=== PATIENT | male | born 1955 | race Caucasian/White ===

== ENCOUNTER 2017-02-19 21:58 | Inpatient (IN) | payer OTHER ==
[~2017-02-19] VITALS: Ht 165.1 cm; Wt 128.0 kg
[~2017-02-19 21:58] MED LIST: ADVAIR 500-501 EACH IH; ADVAIR 500/501 DISK IH; ANUSOL-HC21 GM PR; ASPIR-LOW81 M1 PO; ASPIRIN81 M2 PO; ATORVASTATIN CA20 MG PO; BACTRIM,SEPT1 TABLET PO; BENICAR HCT 401 EAC1; BENICAR HCT 401 EAC1 PO; BENICAR20 MG PO; COLACE100 MG PO; FLEXERIL10 MG PO; FLONASE16 G1 BOTH NARES; GLUCOPHAGE1000 MG PO; GLUCOPHAGE500 MG PO; HUMULIN R500 UNITS/ SC; HYZAAR 100-21 TABLET PO; INDOCIN25 MG PO; JANUVIA100 MG; JANUVIA100 MG PO; LANTUS 3 M100 UNITS/ SQ; LANTUS 3 M100 UNITS1; LANTUS 3 M100 UNITS1 SC; LIPITOR20 MG PO; LIPITOR40 MG; LIPITOR40 MG PO; LOSARTAN-HCTZ1 EAC1 PO; MOTRIN600 MG PO; NEXIUM40 MG; NEXIUM40 MG PO; NIACIN1000 MG PO; NIASPAN500 MG PO; NORCO 7.5/321 TABLET PO; NOVOLOG 10100 UNITS/ SQ; NOVOLOG PE100 UNITS/; NOVOLOG PE100 UNITS/ SC; OXYCODONE-APAP1 EAC6 PO; PERCOCET 5/31 TABLET PO; PROAIR HFA8.5 GM IH; PROTONIX40 MG PO; SINGULAIR10 MG; SINGULAIR10 MG PO; SKELAXIN800 MG PO; TENEX1 MG PO; TOPROL XL25 MG PO; TORADOL10 MG PO; TRICOR48 MG; TRICOR48 MG PO; Toprol XL PO; ZANTAC300 MG PO
[2017-02-19 22:34] LABS: HEMATOCRIT 41.8 % (38.0-50.0); MCH 31.1 PG (29.0-34.0); MCHC 33.7 G/DL (30.0-36.0); MCV 92.1 FL (86-99); MEAN PLAT.VOLUME 11.5 uM^3 (9.0-12.4); RBC DIS.WIDTH-CV 14.1 % (11.8-14.6); RBC DIS.WIDTH-SD 47.2 % (39-53); RED BLOOD COUNT 4.54 M/uL (4.00-5.50); WHITE BLOOD COUNT 8.7 K/uL (4.1-10.2)
[2017-02-19 22:37] LABS: PLATELET COUNT 187 K/uL (156-360)
[2017-02-19 22:47] LABS: CHLORIDE 109 mEq/L (99-109); POTASSIUM 3.6 mEq/L (3.7-5.4); SODIUM 142 mEq/L (136-147)
[2017-02-19 22:48] LABS: GLUCOSE 97 mg/dL (70-99)
[2017-02-19 22:50] LABS: ANION GAP 10 MEQ/L (2-14)
[2017-02-19 22:52] LABS: GFR ESTIMATE (CALCULATED) > 59 mL/min/
[2017-02-19 22:53] LABS: UREA NITROGEN (BUN) 17 mg/dL (9-23)
[2017-02-19 23:08] LABS: TROP-I INTERPRETATION NEGATIVE; TROPONIN-I 0.09 ng/mL (0.0-0.30)
[2017-02-20 00:15] LABS: PROTHROMBIN TIME 10.6 (9.2-11.2); PTT 26.4 (25-32)
[2017-02-20] MEDS ORDERED: INSULIN SYRING MC (01:09)
[2017-02-20] MEDS ORDERED: HUMULIN R500 UNITS/ SC ×3 (01:10→01:14)
[2017-02-20 01:20] LABS: D-DIMER ELISA 0.55 mg/L FEU (< 0.57)
[2017-02-20] MEDS ORDERED: SPIRIVA RESPIMAT4 GM IH (01:26)
[2017-02-20] MEDS ORDERED: MONTELUKAST SOD10 MG PO (01:26)
[2017-02-20] MEDS ORDERED: FOLIC ACID1 MG PO (01:27)
[2017-02-20] MEDS ORDERED: ROPINIROLE HC0.25 MG PO (01:27)
[2017-02-20] MEDS ORDERED: MELOXICAM7.5 MG PO (01:27)
[2017-02-20] MEDS ORDERED: MODAFINIL200 MG PO (01:27)
[2017-02-20] MEDS ORDERED: AMLODIPINE BESYL5 MG PO (01:58)
[2017-02-20] MEDS ORDERED: ASPIRIN81 M2 PO (01:58)
[2017-02-20 02:28] LABS: TOTAL BILIRUBIN 0.4 mg/dL (0.0-1.0)
[2017-02-20 02:29] LABS: ALKALINE PHOSPHATASE 71 IU/L (3-129)
[2017-02-20 02:32] LABS: DIRECT BILIRUBIN 0.1 mg/dL (0.0-0.3)
[2017-02-20 05:18] LABS: CHLORIDE 109 mEq/L (99-109); POTASSIUM 3.8 mEq/L (3.7-5.4); SODIUM 141 mEq/L (136-147)
[2017-02-20 05:19] LABS: MAGNESIUM 1.6 mg/dL (1.3-2.7)
[2017-02-20 05:20] LABS: GLUCOSE 101 mg/dL (70-99)
[2017-02-20 05:22] LABS: ANION GAP 10 MEQ/L (2-14)
[2017-02-20 05:24] LABS: ALKALINE PHOSPHATASE 61 IU/L (3-129); GFR ESTIMATE (CALCULATED) > 59 mL/min/; TROP-I INTERPRETATION NEGATIVE; TROPONIN-I 0.09 ng/mL (0.0-0.30)
[2017-02-20 05:25] LABS: UREA NITROGEN (BUN) 17 mg/dL (9-23)
[2017-02-20 05:32] LABS: TOTAL BILIRUBIN 0.6 mg/dL (0.0-1.0)
[2017-02-20 05:55] LABS: HDL CHOLESTEROL 23 MG/DL (Desirable>=40); NON-HDL CHOLESTEROL 228 mg/dL (Desirable<160); TOTAL CHOLESTEROL 251 mg/dL (Desirable<200); TRIGLYCERIDES 427 MG/DL (Normal: <150)
[2017-02-20 09:24] LABS: POINT-OF-CARE METER ID UU14100415
[2017-02-20 10:30] VITALS: BP 141/74
[2017-02-20 11:34] LABS: POINT-OF-CARE METER ID UU13113781
[2017-02-20 11:35] LABS: TROP-I INTERPRETATION NEGATIVE; TROPONIN-I 0.21 ng/mL (0.0-0.30)
[2017-02-20 14:04] LABS: ADD MIUA? YES; BILIRUBIN NEGATIVE; BLOOD SMALL; COLOR STRAW ((YELLOW)); GLUCOSE (STRIP) NEGATIVE; KETONES NEGATIVE; LEUKOCYTES NEGATIVE; NITRITE NEGATIVE; PROTEIN (STRIP) 100; SPECIFIC GRAVITY 1.013 (1.000-1.030); UROBILINOGEN 0.2 MG/DL (0.2-1.0)
[2017-02-20 14:09] LABS: BACTERIA NONE SEEN /HPF; EPITHELIAL CELLS RARE /HPF; MUCUS TRACE /LPF; RED BLOOD CELLS 0-5 /HPF (0-5); UCUL ADDED? NO; WHITE BLOOD CELLS 0-5 /HPF (0-5)
[2017-02-20 15:36] VITALS: BP 123/58
[2017-02-20 19:52] LABS: POINT-OF-CARE METER ID UU14174216
[2017-02-20 20:22] VITALS: BP 136/65
[2017-02-21 00:22] VITALS: BP 102/59
[2017-02-21 05:22] VITALS: BP 98/55
[2017-02-21 06:48] LABS: EOSINOPHIL (%) 1.6 % (0-5); EOSINOPHIL COUNT 0.1 K/uL (0-0.3); HEMATOCRIT 40.5 % (38.0-50.0); IMMATURE GRANULOCYTE (%) 0.8 % (0.0-0.7); IMMATURE GRANULOCYTE COUNT 0.1 K/uL; INSTRUMENT ABS NEUTROPHIL CT 5.5 K/uL; LYMPHOCYTE COUNT 2.1 K/uL (1.0-2.8); MCH 30.3 PG (29.0-34.0); MCHC 33.1 G/DL (30.0-36.0); MCV 91.6 FL (86-99); MEAN PLAT.VOLUME 11.7 uM^3 (9.0-12.4); NEUTROPHIL (%) 62.9 % (45-76); NEUTROPHIL COUNT 5.5 K/uL (1.8-6.4); PLATELET COUNT 175 K/uL (156-360); RBC DIS.WIDTH-CV 14.4 % (11.8-14.6); RBC DIS.WIDTH-SD 47.9 % (39-53); RED BLOOD COUNT 4.42 M/uL (4.00-5.50); WHITE BLOOD COUNT 8.8 K/uL (4.1-10.2)
[2017-02-21 07:16] LABS: ALKALINE PHOSPHATASE 51 IU/L (3-129); ANION GAP 11 MEQ/L (2-14); CHLORIDE 104 MEQ/L (99-109); GFR ESTIMATE (CALCULATED) 51 mL/min/; GLUCOSE 72 mg/dL (70-99); POTASSIUM 3.3 MEQ/L (3.7-5.4); SAMPLE HEMOLYSIS CHECK 0; SAMPLE ICTERIC CHECK 0; SAMPLE LIPEMIA CHECK 0; SODIUM 142 MEQ/L (136-147); TOTAL BILIRUBIN 0.8 MG/DL (0.0-1.0); UREA NITROGEN (BUN) 21 mg/dL (9-23)
[2017-02-21 07:41] VITALS: BP 114/59
[2017-02-21 07:47] VITALS: BP 117/56
[2017-02-21 08:06] LABS: POINT-OF-CARE METER ID UU14174216; POINT-OF-CARE USER ID NUTSLF44
[2017-02-21 14:10] VITALS: BP 134/68
[2017-02-21 16:53] LABS: POINT-OF-CARE METER ID UU14174216; POINT-OF-CARE USER ID NUTSLF44
[2017-02-21 20:15] VITALS: BP 130/77
[2017-02-21 20:51] LABS: POINT-OF-CARE METER ID UU14174216
[2017-02-22 00:25] VITALS: BP 108/56
[2017-02-22 04:41] VITALS: BP 117/68
[2017-02-22 07:49] LABS: POINT-OF-CARE METER ID UU14174216
[2017-02-22 09:29] VITALS: BP 125/64
[2017-02-22 11:44] LABS: POINT-OF-CARE METER ID UU14174216
[2017-02-22 12:16] VITALS: BP 126/76
[2017-02-22 16:32] LABS: POINT-OF-CARE METER ID UU14174216
[2017-02-22 16:52] VITALS: BP 128/63
[2017-02-22 19:20] VITALS: BP 127/63
[2017-02-23 00:39] VITALS: BP 129/67
[2017-02-23 05:27] VITALS: BP 132/72
[2017-02-23 07:41] LABS: POINT-OF-CARE METER ID UU14174216
[2017-02-23 08:24] VITALS: BP 141/67
[2017-02-23 11:06] VITALS: BP 138/64
[2017-02-23] MEDS ORDERED: Robitussin AC,Tussi- PO (12:06)
[2017-02-23] MEDS ORDERED: AZELASTINE137 MCG/0. BOTH NARES (12:07)
[2017-02-23] MEDS ORDERED: Tums,OsCal PO (12:07)
[2017-02-23] MEDS ORDERED: DOCUSATE SODIU100 MG PO (12:07)
[2017-02-23] MEDS ORDERED: Zeasorb Antifungal T TP (12:08)
[2017-02-23] MEDS ORDERED: LASIX40 MG PO (12:31)
== END 2017-02-23 14:20 | disposition home or self-care (01) | DRG 287 ==
LOC: EME 21:58 → EDOF 02-20 01:07 → 4EAST 02-20 01:07
PROVIDERS: Hospitalist; Physician Assistant Medical; Student in an Organized Health Care Education/Training Program
PROC: 5A09357 Assistance with Respiratory Ventilation, Less than 24 Consecutive Hours, Continuous Positive Airway Pressure (ICD-10-PCS; 2017-02-20)
PROC: B2111ZZ Fluoroscopy of Multiple Coronary Arteries using Low Osmolar Contrast (ICD-10-PCS; principal; 2017-02-21)
PROC: 4A033BC Measurement of Arterial Pressure, Coronary, Percutaneous Approach (ICD-10-PCS; principal; 2017-02-21)
PROC: 4A023N7 Measurement of Cardiac Sampling and Pressure, Left Heart, Percutaneous Approach (ICD-10-PCS; principal; 2017-02-21)
PROC: B2151ZZ Fluoroscopy of Left Heart using Low Osmolar Contrast (ICD-10-PCS; principal; 2017-02-21)
DX: I25.110 Atherosclerotic heart disease of native coronary artery with unstable angina pectoris (principal); I50.30 Unspecified diastolic (congestive) heart failure; E66.2 Morbid (severe) obesity with alveolar hypoventilation; E11.9 Type 2 diabetes mellitus without complications; I10 Essential (primary) hypertension; E78.00 Pure hypercholesterolemia, unspecified; G89.29 Other chronic pain; H91.20 Sudden idiopathic hearing loss, unspecified ear; H91.90 Unspecified hearing loss, unspecified ear; G47.33 Obstructive sleep apnea (adult) (pediatric); I34.0 Nonrheumatic mitral (valve) insufficiency; R07.9 Chest pain, unspecified; I25.10 Atherosclerotic heart disease of native coronary artery without angina pectoris; R09.89 Other specified symptoms and signs involving the circulatory and respiratory systems; J20.9 Acute bronchitis, unspecified; Z87.891 Personal history of nicotine dependence
CPT/HCPCS: 71020; 71275; 74177; 80048; 80053; 80061; 80076; 81003; 82948; 83735; 83880; 84484; 85025; 85027; 85347; 85379; 85610; 85730; 93005; 93306; 94640; 94640 76; 94799; 99202; 99281; 99285; C1769; C1887; J0153; J1644; J1650; J1815; J1940; J2250; J2270; J3010; J3475; J7050

== ENCOUNTER 2017-03-30 12:01 | Emergency (ER) | payer OTHER ==
[~2017-03-30] VITALS: Ht 165.1 cm; Wt 126.6 kg
[~2017-03-30 12:01] MED LIST changes: +AMLODIPINE BESYL5 MG PO; +AZELASTINE137 MCG/0. BOTH NARES; +DOCUSATE SODIU100 MG PO; +FOLIC ACID1 MG PO; +INSULIN SYRING MC; +LASIX40 MG PO; +MELOXICAM7.5 MG PO; +MODAFINIL200 MG PO; +MONTELUKAST SOD10 MG PO; +ROPINIROLE HC0.25 MG PO; +Robitussin AC,Tussi- PO; +SPIRIVA RESPIMAT4 GM IH; +Tums,OsCal PO; +Zeasorb Antifungal T TP
[2017-03-30 12:36] LABS: HEMATOCRIT 41.6 % (38.0-50.0); MCHC 34.6 G/DL (30.0-36.0); MCV 89.7 FL (86-99); MEAN PLAT.VOLUME 12.1 uM^3 (9.0-12.4); PLATELET COUNT 157 K/uL (156-360); RBC DIS.WIDTH-CV 13.2 % (11.8-14.6); RED BLOOD COUNT 4.64 M/uL (4.00-5.50); WHITE BLOOD COUNT 12.2 K/uL (4.1-10.2)
[2017-03-30 12:42] LABS: ADD MIUA? YES; BILIRUBIN NEGATIVE; BLOOD SMALL; COLOR YELLOW ((YELLOW)); GLUCOSE (STRIP) >=500; KETONES NEGATIVE; LEUKOCYTES SMALL; NITRITE NEGATIVE; PROTEIN (STRIP) 100; SPECIFIC GRAVITY 1.014 (1.000-1.030); UROBILINOGEN 0.2 MG/DL (0.2-1.0)
[2017-03-30 12:51] LABS: BACTERIA RARE /HPF; EPITHELIAL CELLS RARE /HPF; MUCUS TRACE /LPF; UCUL ADDED? YES; WHITE BLOOD CELLS TNTC /HPF (0-5)
[2017-03-30 12:56] LABS: CHLORIDE 99 mEq/L (99-109); POTASSIUM 3.6 mEq/L (3.7-5.4); SODIUM 135 mEq/L (136-147)
[2017-03-30 12:58] LABS: GLUCOSE 332 mg/dL (70-99)
[2017-03-30 13:00] LABS: ANION GAP 13 MEQ/L (2-14)
[2017-03-30 13:02] LABS: GFR ESTIMATE (CALCULATED) 44 mL/min/
[2017-03-30 13:03] LABS: UREA NITROGEN (BUN) 38 mg/dL (9-23)
[2017-03-30] MEDS ORDERED: KEFLEX500 MG PO (15:08)
[2017-03-30] MEDS ORDERED: ZOFRAN4 MG PO (15:08)
[2017-03-30] MEDS ORDERED: ULTRAM50 MG PO (15:08)
[2017-03-30 16:13] VITALS: BP 127/63
== END 2017-03-30 16:13 | disposition home or self-care (01) ==
LOC: EME 12:01
DX: N12 Tubulo-interstitial nephritis, not specified as acute or chronic (principal); J45.909 Unspecified asthma, uncomplicated; R31.9 Hematuria, unspecified; E11.9 Type 2 diabetes mellitus without complications; E78.5 Hyperlipidemia, unspecified; I10 Essential (primary) hypertension; K21.9 Gastro-esophageal reflux disease without esophagitis; E66.9 Obesity, unspecified
CPT/HCPCS: 74176; 80048; 81003; 85027; 87077; 87086; 87186; 99281; 99285; J0696; J1885; J2405; J3010; J7030; J7050

== ENCOUNTER 2017-04-01 15:53 | Inpatient (IN) | payer OTHER ==
[~2017-04-01] VITALS: Ht 165.1 cm; Wt 128.0 kg
[~2017-04-01 15:53] MED LIST changes: +KEFLEX500 MG PO; +ULTRAM50 MG PO; +ZOFRAN4 MG PO
[2017-04-01 16:24] LABS: HEMATOCRIT 36.5 % (38.0-50.0); MCH 30.9 PG (29.0-34.0); MCHC 34.2 G/DL (30.0-36.0); MCV 90.1 FL (86-99); MEAN PLAT.VOLUME 11.8 uM^3 (9.0-12.4); PLATELET COUNT 131 K/uL (156-360); RBC DIS.WIDTH-CV 12.9 % (11.8-14.6); RBC DIS.WIDTH-SD 42.6 % (39-53); RED BLOOD COUNT 4.05 M/uL (4.00-5.50); WHITE BLOOD COUNT 10.1 K/uL (4.1-10.2)
[2017-04-01 16:34] LABS: CHLORIDE 100 mEq/L (99-109); POTASSIUM 3.7 mEq/L (3.7-5.4); SODIUM 135 mEq/L (136-147)
[2017-04-01 16:36] LABS: GLUCOSE 177 mg/dL (70-99)
[2017-04-01 16:37] LABS: ANION GAP 11 MEQ/L (2-14)
[2017-04-01 16:40] LABS: GFR ESTIMATE (CALCULATED) 36 mL/min/; UREA NITROGEN (BUN) 44 mg/dL (9-23)
[2017-04-01 17:05] LABS: ADD MIUA? YES; BILIRUBIN NEGATIVE; BLOOD NEGATIVE; COLOR YELLOW ((YELLOW)); GLUCOSE (STRIP) NEGATIVE; KETONES NEGATIVE; LEUKOCYTES NEGATIVE; NITRITE NEGATIVE; PROTEIN (STRIP) 100; SPECIFIC GRAVITY 1.016 (1.000-1.030); UROBILINOGEN 0.2 MG/DL (0.2-1.0)
[2017-04-01 17:14] LABS: BACTERIA RARE /HPF; EPITHELIAL CELLS NONE SEEN /HPF; MUCUS TRACE /LPF; RED BLOOD CELLS 0-5 /HPF (0-5); UCUL ADDED? NO; WHITE BLOOD CELLS 0-5 /HPF (0-5)
[2017-04-01] MEDS ORDERED: BREO ELLIPTA I1 EACH IH (19:21)
[2017-04-01] MEDS ORDERED: ROBITUSSIN AC,T10 ML PO (19:25)
[2017-04-01 20:44] LABS: TROP-I INTERPRETATION NEGATIVE; TROPONIN-I 0.07 ng/mL (0.0-0.30)
[2017-04-01 21:27] VITALS: BP 145/66
[2017-04-02 03:15] VITALS: BP 151/71
[2017-04-02 03:17] LABS: POINT-OF-CARE METER ID UU14188625
[2017-04-02 07:27] LABS: HEMATOCRIT 33.2 % (38.0-50.0); MCH 32.1 PG (29.0-34.0); MCHC 35.2 G/DL (30.0-36.0); MEAN PLAT.VOLUME 13.2 uM^3 (9.0-12.4); PLATELET COUNT 128 K/uL (156-360); RBC DIS.WIDTH-SD 42.9 % (39-53); RED BLOOD COUNT 3.65 M/uL (4.00-5.50); WHITE BLOOD COUNT 9.3 K/uL (4.1-10.2)
[2017-04-02 07:44] LABS: CHLORIDE 98 MEQ/L (99-109); GFR ESTIMATE (CALCULATED) 47 mL/min/; POTASSIUM 3.3 MEQ/L (3.7-5.4); SODIUM 136 MEQ/L (136-147); UREA NITROGEN (BUN) 41 mg/dL (9-23)
[2017-04-02 07:45] LABS: ALKALINE PHOSPHATASE 56 IU/L (3-129); ANION GAP 11 MEQ/L (2-14); SAMPLE HEMOLYSIS CHECK 0; SAMPLE ICTERIC CHECK 0; SAMPLE LIPEMIA CHECK 0; TOTAL BILIRUBIN 0.7 MG/DL (0.0-1.0)
[2017-04-02 07:50] LABS: GLUCOSE 74 mg/dL (70-99)
[2017-04-02 07:56] VITALS: BP 120/64
[2017-04-02 08:04] LABS: POINT-OF-CARE METER ID UU14188625
[2017-04-02 11:44] VITALS: BP 126/59
[2017-04-02 15:45] VITALS: BP 129/63
[2017-04-02 20:00] VITALS: BP 119/55
[2017-04-02 21:58] LABS: POINT-OF-CARE METER ID UU14188625
[2017-04-03 00:06] VITALS: BP 113/55
[2017-04-03 04:22] VITALS: BP 107/61
[2017-04-03 07:18] LABS: EOSINOPHIL (%) 1.6 % (0-5); EOSINOPHIL COUNT 0.1 K/uL (0-0.3); HEMATOCRIT 32.3 % (38.0-50.0); IMMATURE GRANULOCYTE (%) 0.7 % (0.0-0.7); IMMATURE GRANULOCYTE COUNT 0.1 K/uL; INSTRUMENT ABS NEUTROPHIL CT 5.9 K/uL; LYMPHOCYTE COUNT 1.5 K/uL (1.0-2.8); MCH 30.9 PG (29.0-34.0); MCHC 34.4 G/DL (30.0-36.0); MEAN PLAT.VOLUME 12.5 uM^3 (9.0-12.4); MONOCYTE (%) 12.3 % (3-12); MONOCYTE COUNT 1.1 K/uL (0-0.8); NEUTROPHIL (%) 68.3 % (45-76); NEUTROPHIL COUNT 5.9 K/uL (1.8-6.4); PLATELET COUNT 128 K/uL (156-360); RBC DIS.WIDTH-CV 12.9 % (11.8-14.6); RBC DIS.WIDTH-SD 42.5 % (39-53); RED BLOOD COUNT 3.59 M/uL (4.00-5.50); WHITE BLOOD COUNT 8.7 K/uL (4.1-10.2)
[2017-04-03 07:28] VITALS: BP 99/59
[2017-04-03 07:47] LABS: ANION GAP 10 MEQ/L (2-14); CHLORIDE 98 MEQ/L (99-109); GFR ESTIMATE (CALCULATED) 47 mL/min/; MAGNESIUM 1.5 mg/dl (1.3-2.7); POTASSIUM 3.3 MEQ/L (3.7-5.4); SAMPLE HEMOLYSIS CHECK 0; SAMPLE ICTERIC CHECK 0; SAMPLE LIPEMIA CHECK 0; SODIUM 135 MEQ/L (136-147); UREA NITROGEN (BUN) 43 mg/dL (9-23)
[2017-04-03 07:50] LABS: GLUCOSE 119 mg/dL (70-99)
[2017-04-03] MEDS ORDERED: LASIX40 MG PO (09:17)
[2017-04-03] MEDS ORDERED: ASPIR-LOW81 MG PO (09:17)
[2017-04-03] MEDS ORDERED: CIPRO500 MG PO (09:30)
[2017-04-03 10:55] VITALS: BP 141/67
== END 2017-04-03 10:57 | disposition home or self-care (01) | DRG 683 ==
LOC: EME 15:53 → 5SOUTH 19:32 → EDOF 19:32 → 5SOUTH 21:06
PROVIDERS: Hospitalist; Internal Medicine; Internal Medicine Nephrology; Physician Assistant Medical
DX: N17.9 Acute kidney failure, unspecified (principal); N10 Acute pyelonephritis; E11.9 Type 2 diabetes mellitus without complications; I25.10 Atherosclerotic heart disease of native coronary artery without angina pectoris; E78.5 Hyperlipidemia, unspecified; G47.33 Obstructive sleep apnea (adult) (pediatric); E66.01 Morbid (severe) obesity due to excess calories; Z68.42 Body mass index [BMI] 45.0-49.9, adult; B96.20 Unspecified Escherichia coli [E. coli] as the cause of diseases classified elsewhere; I50.32 Chronic diastolic (congestive) heart failure; K21.9 Gastro-esophageal reflux disease without esophagitis; Z87.891 Personal history of nicotine dependence; I13.0 Hypertensive heart and chronic kidney disease with heart failure and stage 1 through stage 4 chronic kidney disease, or unspecified chronic kidney disease; N18.3 Chronic kidney disease, stage 3 (moderate); E87.6 Hypokalemia; I27.2 Other secondary pulmonary hypertension; I08.1 Rheumatic disorders of both mitral and tricuspid valves; E78.00 Pure hypercholesterolemia, unspecified; J44.9 Chronic obstructive pulmonary disease, unspecified
CPT/HCPCS: 71020; 76770; 80048; 80053; 81003; 82948; 83735; 84100; 84484; 85025; 85027; 93005; 94640; 94640 76; 94660; 94760; 94799; 99202; 99281; 99285; J0696; J1644; J1815; J1940; J2270; J7030; J7050

== ENCOUNTER → 2018-01-29 | Outpatient (CLI) | payer BC ==
[~2018-01-29] MED LIST changes: +ASPIR-LOW81 MG PO; +BREO ELLIPTA I1 EACH IH; +CIPRO500 MG PO; +ROBITUSSIN AC,T10 ML PO
== END | disposition home or self-care (01) ==
LOC: NUC 08:14
DX: R10.13 Epigastric pain (principal); R10.11 Right upper quadrant pain; E11.65 Type 2 diabetes mellitus with hyperglycemia
CPT/HCPCS: 78264; A9541

== ENCOUNTER 2018-04-15 10:37 | Emergency (ER) | payer BC ==
[~2018-04-15] VITALS: Ht 165.1 cm; Wt 131.5 kg
[2018-04-15 15:12] VITALS: BP 163/79
== END 2018-04-15 15:16 | disposition home or self-care (01) ==
LOC: EME 10:37
DX: S61.210A Laceration without foreign body of right index finger without damage to nail, initial encounter (principal); W23.0XXA Caught, crushed, jammed, or pinched between moving objects, initial encounter; Y93.E9 Activity, other interior property and clothing maintenance; J44.9 Chronic obstructive pulmonary disease, unspecified; I10 Essential (primary) hypertension; E11.9 Type 2 diabetes mellitus without complications; K21.9 Gastro-esophageal reflux disease without esophagitis; E78.5 Hyperlipidemia, unspecified; G47.30 Sleep apnea, unspecified; Z79.4 Long term (current) use of insulin; Z87.891 Personal history of nicotine dependence; Z86.79 Personal history of other diseases of the circulatory system
CPT/HCPCS: 73140; 99281; 99285

== ENCOUNTER → 2018-05-01 | Outpatient (CLI) | payer BC | END | disposition home or self-care (01) | LOC: RES 04-22 10:00 | DX: R05 Cough (principal) | CPT/HCPCS: 94060; 94726; 94729 ==